=== PATIENT | male | born 1995 | race Caucasian/White ===

== ENCOUNTER 2017-09-15 16:05 | Emergency (ER) | payer SELFPAY ==
[~2017-09-15] VITALS: Ht 185.4 cm; Wt 117.9 kg
[2017-09-15 17:07] VITALS: BP 137/94
--- NOTE | 2017-09-15 17:11 | NUR ---
PT STABLE TO WAIT IN LOBBY , INFORMED TO NOTIFY STAFF IMMMEDIATELY IF THERE IS ANY CHANGE IN CONDITON.
--- NOTE | 2017-09-15 18:38 | NUR ---
PT STABLE TO CONT TO WAIT IN LOBBY , INFORMED TO NOTIFY STAFF IMMMEDIATELY IF THERE IS ANY CHANGE IN CONDITON. VSS
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
--- NOTE | 2017-09-15 19:30 | NUR ---
PATIENT TO ER BED 1.
[2017-09-15] MEDS ORDERED: IBUPROFEN 800 MG TAB PO ONE (20:00)
[2017-09-15 21:14] VITALS: BP 136/75
== END 2017-09-15 21:14 | disposition home or self-care (01) ==
LOC: MED 16:05
DX: S16.1XXA Strain of muscle, fascia and tendon at neck level, initial encounter (principal); V43.52XA Car driver injured in collision with other type car in traffic accident, initial encounter; Y93.I9 Activity, other involving external motion; Y92.488 Other paved roadways as the place of occurrence of the external cause; Y99.8 Other external cause status
CPT/HCPCS: 72040; 74018; 99284

== ENCOUNTER 2023-03-06 12:54 | Emergency (ER) | payer OTHER ==
[~2023-03-06] VITALS: Ht 188 cm; Wt 135.2 kg
[2023-03-06 13:05] VITALS: BP 122/81; PULSE 89; RESP 20; TEMP 98.1; O2SAT 96
[2023-03-06] MEDS ORDERED: MECL-303 PO (14:00)
== END 2023-03-06 14:14 | disposition home or self-care (01) ==
LOC: MED 12:54
DX: R42 Dizziness and giddiness (principal); Z79.899 Other long term (current) drug therapy
CPT/HCPCS: 99282

== ENCOUNTER 2023-06-04 21:54 | Emergency (ER) | payer OTHER ==
[~2023-06-04] VITALS: Ht 188 cm; Wt 132.9 kg
[~2023-06-04 21:54] MED LIST: MECL-303 PO
[2023-06-04 21:58] VITALS: BP 141/76; PULSE 86; RESP 17; TEMP 97; O2SAT 98
[2023-06-05 01:12] LABS: EOSINOPHILS # (AUTO) 0.3 K/uL (0-0.4); LYMPHOCYTES # (AUTO) 2.9 K/uL (2.0-11.5); RED CELL DISTRIBUTION WIDTH 12.9 % (11.6-13.7); WHITE BLOOD COUNT (AUTO) 11.5 K/uL (4.8-10.8)
[2023-06-05 01:22] LABS: BASOPHILS # (AUTO) 0.1 K/uL (0.00-0.22); BASOPHILS % (AUTO) 0.8 % (0.0-2.0); EOSINOPHILS % (AUTO) 2.3 % (0.0-4.0); HEMATOCRIT 44.5 % (36-52); HEMOGLOBIN 15.3 g/dL (12.0-18.0); LYMPHOCYTES % (AUTO) 25.5 % (20.5-51.1); MEAN CORPUSCULAR HEMOGLOBIN 30 pg (27-31); MEAN CORPUSCULAR HGB CONC 34 g/dL (33-37); MEAN CORPUSCULAR VOLUME 86.1 fL (80-94); MONOCYTES % (AUTO) 8.6 % (1.7-9.3); NEUTROPHILS # (AUTO) 7.2 K/uL (1.8-7.7); NEUTROPHILS % (AUTO) 62.8 % (42.2-75.2); PLATELET COUNT (AUTO) 301 K/uL (140-450); RED BLOOD CELL COUNT(AUTO) 5.17 MIL/uL (4.20-6.10)
[2023-06-05 01:50] LABS: ANION GAP 13.9 (8-16); CALCIUM 9.4 mg/dL (8.5-10.1); CARBON DIOXIDE 27.4 mmol/L (21-32); CREATININE 0.9 mg/dL (0.6-1.3); POTASSIUM 4.3 mmol/L (3.5-5.1)
[2023-06-05 02:50] VITALS: BP 119/80; PULSE 79; RESP 17; TEMP 98; O2SAT 98
== END 2023-06-05 02:50 | disposition home or self-care (01) ==
LOC: MED 21:54
DX: R07.89 Other chest pain (principal); T50.905A Adverse effect of unspecified drugs, medicaments and biological substances, initial encounter; Y92.89 Other specified places as the place of occurrence of the external cause
CPT/HCPCS: 36415; 71045; 80048; 84484; 85025; 93005; 99285